=== PATIENT | male | born 1990 | race Caucasian/White ===

== ENCOUNTER 2017-08-06 16:18 | Emergency (ER) | payer SELFPAY ==
[2017-08-06] MEDS ORDERED: LORazepam INJ* 2 MG/ML 1 ML VIAL IV PUSH ONE (16:38)
[2017-08-06] MEDS ORDERED: NS 0.9% 1000 ML* 2,000 ML IV ONE (16:38)
[2017-08-06 17:12] LABS: Hematocrit 43 % (42-52); Hemoglobin 14.8 g/dl (14.0-18.0); Mean Corpuscular HGB Conc 35 g/dl (31-36); Mean Corpuscular Hemoglobin 31 pg (27-31); Mean Corpuscular Volume 89 fL (80-94); Mean Platelet Volume 9.1 um3 (7.4-10.4); Platelet Count 219 10^3/ul (150-450); Red Cell Distribution Width 13 % (10.5-15); White Blood Count 8.7 10^3/ul (3.5-10.8)
[2017-08-06] MEDS ORDERED: Ibuprofen TAB* 800 MG PO ONE (18:47)
[2017-08-06 19:24] VITALS: BP 00/00
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
== END 2017-08-06 19:23 | disposition home or self-care (01) ==
LOC: ED 16:18
DX: F19.10 Other psychoactive substance abuse, uncomplicated (principal); R00.0 Tachycardia, unspecified; R50.9 Fever, unspecified; R61 Generalized hyperhidrosis; R42 Dizziness and giddiness
CPT/HCPCS: 36415; 80053; 80307; 84484; 85027; 93005; 96361; 96374; 99283; A9270-GY; J2060